=== PATIENT | male | born 1975 | race Caucasian/White ===

== ENCOUNTER → 2018-05-16 11:28 | Outpatient (CLI) | payer OTHER, SELFPAY ==
[2018-05-16 12:43] LABS: Alanine Aminotransferase 39 IU/L (21-72); Albumin 4.2 g/dL (3.5-5.0); Albumin Globulin Ratio 1.7 (1.0-2.8); Alkaline Phosphatase 47 U/L (38-126); Aspartate Aminotransferase 30 IU/L (17-59); BUN Creatinine Ratio 10.9 (6-22); Bilirubin Total 1.2 mg/dL (0.2-1.3); Blood Urea Nitrogen 12 mg/dL (9-20); Carbon Dioxide 24 mmol/L (22-32); Chloride 106 mmol/L (98-107); Cholesterol 188 mg/dL (140-199); Estimated Glomerular Filt Rate > 60.0 mL/min (>60); Globulin 2.5 g/dL (1.7-4.1); Glucose 94 mg/dL (70-100); HDL Cholesterol 39 mg/dL (40-60); HEMOLYSIS < 15 (0-50); LDL Cholesterol Calculated 114 mg/dL (<100); Potassium 4.5 mmol/L (3.4-5.1); Sodium 139 mmol/L (137-145); Total Protein 6.7 g/dL (6.3-8.2); Triglycerides 175 mg/dL (35-150)
[2018-05-16 17:17] LABS: Microalbumin Urine Random 1.6 mg/dL (0-1.6)
[2018-05-16 17:35] LABS: Creatinine Urine Random 465.1 mg/dL; Microalbumi Creatinin Ratio Ur 3.4 ug/mg CR (<30)
== END ==
PROVIDERS: PCP Physician Assistant; Visit Provider Physician Assistant
DX: I10 Essential (primary) hypertension (principal)
CPT/HCPCS: 36415; 80053; 80061; 82043; 82570

== ENCOUNTER 2018-10-25 22:42 | Emergency (ER) | payer OTHER, SELFPAY ==
--- NOTE | 2018-10-25 22:51 | DI.RAD.S_ITS ---
PROCEDURE: XR RIBS LT MIN 3V W CXR1V INDICATIONS: fall and landed on left ribs TECHNIQUE: 2 views of the left ribs were acquired, along with a single view chest. COMPARISON: None. FINDINGS: Surgical changes and devices: None. Bones and chest wall: No fractures or dislocations. No suspicious bony lesions. Overlying soft tissues appear unremarkable. Lungs and pleura: No pleural effusions or pneumothorax. No acute consolidation. Scattered subsegmental atelectasis and/or scarring Mediastinum: Mediastinal contours appear normal. Heart size is normal. IMPRESSION: No definite or displaced rib fracture identified. No pneumothorax No acute consolidation. Scattered subsegmental atelectasis and/or scarring Dictated by: Danny Moore M.D. on 10/26/2018 at 7:25 Approved by: Danny Moore M.D. on 10/26/2018 at 7:27
--- NOTE | 2018-10-25 22:51 | ED_ITS ---
HPI - Chest Pain General Chief Complaint: Chest Pain Stated Complaint: LT SIDED RIB PAIN Time Seen by Provider: 10/25/18 22:43 Source: patient Mode of arrival: ambulatory Limitations: no limitations History of Present Illness HPI narrative: 43-year-old male here for evaluation of left-sided chest pain. Approximately 2 hr ago he tripped felt his bathroom landed on his left side on the tub. Did not his head. No loss of consciousness. Is not on anticoagulation. Has pain back to the left side of his chest. No problems breathing. Related Data Home Medications Medication Instructions Recorded Confirmed ibuprofen 200 mg PO PRN PRN #0 08/12/17 08/22/18 naproxen sodium [Aleve] 220 mg PO PRN PRN #0 08/12/17 08/22/18 aspirin 81 mg PO QDAY #0 08/30/17 08/22/18 Previous Rx's Medication Instructions Recorded metoprolol tartrate 25 mg tablet 25 mg PO BID #180 tab 06/15/18 azithromycin 250 mg tablet See Label Instructions PO .COMPLEX 08/22/18 #6 tab lisinopril 10 mg tablet 10 mg PO DAILY #90 tab 09/25/18 Allergies Allergy/AdvReac Type Severity Reaction Status Date / Time amoxicillin [AMOXICILLIN] Allergy Intermediate Diffuse Verified 10/25/18 22:52 rash Review of Systems Constitutional Denies fever(s) Cardiovascular Denies chest pain, Denies palpitations and Denies dyspnea Respiratory Reports pain with cough and Denies dyspnea Comments: Pain posterior left chest Gastrointestinal Gastrointestinal: Denies abdominal pain Integumentary/Breasts Denies lesions and Denies rash Endocrine Denies palpitations Hematologic/Lymphatic Comments: Not on anticoagulation PFSH Medical History Chronic back pain (Chronic) Hypertension (Chronic) Sleep apnea (Chronic) Varicose veins of both lower extremities (Chronic) Bilateral inguinal hernia (Resolved) Stroke (Resolved) Surgical History Status post hernia repair (10/20/17) Family History Father History of sleep apnea Mother Varicose veins of both lower extremities Social History Smoking Status: Current every day smoker Tobacco: How many years used: 24 alcohol intake: current (every once in a while, like twice a week) substance use type: does not use Exam Initial Vital Signs Initial Vital Signs: Vital Signs Temperature 98.6 F 10/25/18 22:52 Pulse Rate 86 10/25/18 22:52 Respiratory Rate 15 10/25/18 22:52 Blood Pressure 130/86 10/25/18 22:52 Pulse Oximetry 100 10/25/18 22:52 Const General: cooperative, healthy appearing, comfortable, well developed and No well groomed Orientation: alert, awake and oriented x3 HENMT Head: normal to inspection and normocephalic Chest Chest: normal inspection of the chest Other: No tenderness to palpation anterior left right chest wall Resp Effort & Inspection: normal respiratory effort Auscultation: clear to auscultation bilaterally Cardio Rate: regular rate Rhythm: regular rhythm Back/Spine/Pelvis Other: Tenderness to palpation left-sided paraspinal over mid ribs. Improves as a move laterally Skin Lesions: no lesions Rashes: no rashes Neuro General: alert, awake and oriented x3 Extrem General: normal to inspection and capillary refill normal Psych Appearance: grossly normal and well kempt Course Orders Ordered: ED Orders 10/25/18 22:51 XR ribs LT min 3V w CXR1V Stat Vital Signs - 8 hr 10/25/18 22:52 Temperature 98.6 F Pulse Rate 86 Respiratory Rate 15 Blood Pressure 130/86 Pulse Oximetry 100 [facility] - Chest Pain Imaging Data X-ray ribs: Attestation: I personally reviewed and interpreted this imaging study as follows: My impression: No fractures, no dislocation, no pneumothorax [facility] Narrative Medical decision making narrative: Patient not in respiratory distress. He is not hypoxic. No bruising on the skin. No definitive fracture seen on the rib series x-ray. Had a discussion with the patient regarding his symptoms. He has ibuprofen that he takes at home. He was given return precautions. Will hold on further workup for now. Discharge Plan Departure Patient Disposition: Home Clinical Impression: Contusion of rib on left side Instructions: DI for Rib Contusion Activity Restrictions/Additional Instructions: Recommend that you continue to take the Aleve for any discomfort. Also recommend that you periodically take big deep breaths. Continue all of your other medications as directed. Call your primary care doctor for a follow-up. Return to the emergency department for any new or worsening symptoms Prescriptions: No Action metoprolol tartrate 25 mg tablet 25 mg PO BID Qty: 180 RF: 1 azithromycin 250 mg tablet See Label Instructions PO .COMPLEX Qty: 6 RF: 0 naproxen sodium [Aleve] 220 MG tablet 220 mg PO PRN PRNQty: 0 RF: 0 ibuprofen 200 MG tablet 200 mg PO PRN PRNQty: 0 RF: 0 aspirin 81 MG tablet,delayed release (DR/EC) 81 mg PO QDAY Qty: 0 RF: 0 lisinopril 10 mg tablet 10 mg PO DAILY Qty: 90 RF: 2
[2018-10-25 22:52] VITALS: BP 130/86; PULSE 86; RESP 15; TEMP 37; O2SAT 100; BMI 25.0
[2018-10-25 23:43] VITALS: BP 124/84; PULSE 80; O2SAT 95
== END 2018-10-25 23:43 | disposition home or self-care (01) ==
PROVIDERS: Emergency Provider Emergency Medicine; Family Provider Physician Assistant; PCP Physician Assistant
DX: S20.212A Contusion of left front wall of thorax, initial encounter (principal); W01.0XXA Fall on same level from slipping, tripping and stumbling without subsequent striking against object, initial encounter
CPT/HCPCS: 71101; 99282; 99283

== ENCOUNTER → 2019-04-20 10:37 | Outpatient (CLI) | payer OTHER, SELFPAY ==
[2019-04-20 11:11] LABS: Alanine Aminotransferase 23 IU/L (21-72); Albumin 4.3 g/dL (3.5-5.0); Albumin Globulin Ratio 1.7 (1.0-2.8); Alkaline Phosphatase 34 U/L (38-126); Aspartate Aminotransferase 26 IU/L (17-59); Blood Urea Nitrogen 7 mg/dL (9-20); Calcium 9.2 mg/dL (8.4-10.2); Carbon Dioxide 25 mmol/L (22-32); Chloride 105 mmol/L (98-107); Cholesterol 166 mg/dL (140-199); Estimated Glomerular Filt Rate > 60.0 mL/min (>60); Globulin 2.5 g/dL (1.7-4.1); Glucose 80 mg/dL (70-100); HDL Cholesterol 49 mg/dL (40-60); HEMOLYSIS < 15 (0-50); LDL Cholesterol Calculated 88 mg/dL (<100); Potassium 4.1 mmol/L (3.4-5.1); Sodium 138 mmol/L (137-145); Total Protein 6.8 g/dL (6.3-8.2); Triglycerides 145 mg/dL (35-150)
== END ==
PROVIDERS: PCP Physician Assistant; Visit Provider Physician Assistant
DX: I10 Essential (primary) hypertension (principal); E78.2 Mixed hyperlipidemia
CPT/HCPCS: 36415; 80053; 80061

== ENCOUNTER → 2019-07-13 13:01 | Outpatient (CLI) | payer OTHER, SELFPAY ==
--- NOTE | 2019-07-13 13:03 | DI.RAD.S_ITS ---
PROCEDURE: XR RIBS LT MIN 3V W CXR1V INDICATIONS: Left-sided rib pain TECHNIQUE: 2 views of the left ribs were acquired, along with a single view chest. COMPARISON: [facility], CR, XR RIBS LT MIN 3V W CXR1V, 10/25/2018, 22:59. FINDINGS: Surgical changes and devices: None. Bones and chest wall: No fractures or dislocations. No suspicious bony lesions. Overlying soft tissues appear unremarkable. Lungs and pleura: No pleural effusions or pneumothorax. Lungs appear clear. Mediastinum: Mediastinal contours appear normal. Heart size is normal. IMPRESSION: Chest without acute cardiopulmonary abnormalities. No evidence for acute/displaced rib fractures. Dictated by: Charles Hua M.D. on 07/13/2019 at 13:35 Approved by: Charles Hua M.D. on 07/13/2019 at 13:36
== END ==
PROVIDERS: PCP Physician Assistant; Visit Provider Physician Assistant
DX: R07.81 Pleurodynia (principal)
CPT/HCPCS: 71101

== ENCOUNTER 2019-07-21 03:38 | Emergency (ER) | payer OTHER, SELFPAY ==
[2019-07-21 03:40] VITALS: BP 143/85; PULSE 107; RESP 15; TEMP 36.8; O2SAT 100; BMI 24.1
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
--- NOTE | 2019-07-21 04:35 | PC.NURSE ---
PT L arm abrasion washed with soap and water per Dr instructions.
[2019-07-21 04:40] VITALS: BP 138/91; PULSE 92; RESP 16; O2SAT 98
== END 2019-07-21 04:40 | disposition home or self-care (01) ==
PROVIDERS: Emergency Provider Emergency Medicine; PCP Physician Assistant
DX: S10.91XA Abrasion of unspecified part of neck, initial encounter (principal); S50.812A Abrasion of left forearm, initial encounter; Y04.8XXA Assault by other bodily force, initial encounter
CPT/HCPCS: 70450; 99283

== ENCOUNTER → 2019-07-24 12:27 | Outpatient (CLI) | payer OTHER, SELFPAY ==
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
== END ==
PROVIDERS: PCP Physician Assistant; Visit Provider Hospitalist
DX: R07.81 Pleurodynia (principal); S22.42XA Multiple fractures of ribs, left side, initial encounter for closed fracture; Y04.0XXA Assault by unarmed brawl or fight, initial encounter
CPT/HCPCS: 71101

== ENCOUNTER → 2019-08-21 10:55 | Outpatient (CLI) | payer OTHER, SELFPAY ==
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
== END ==
PROVIDERS: PCP Physician Assistant; Visit Provider Physician Assistant
DX: M25.551 Pain in right hip (principal); S30.0XXA Contusion of lower back and pelvis, initial encounter; M79.18 Myalgia, other site; R20.0 Anesthesia of skin; S51.852A Open bite of left forearm, initial encounter; Y04.1XXA Assault by human bite, initial encounter; Y04.0XXA Assault by unarmed brawl or fight, initial encounter
CPT/HCPCS: 73080; 73502

== ENCOUNTER → 2019-11-12 11:42 | Outpatient (CLI) | payer OTHER, SELFPAY ==
[2019-11-12 12:58] LABS: Blood Urea Nitrogen 9 mg/dL (9-20); Calcium 9.4 mg/dL (8.4-10.2); Carbon Dioxide 25 mmol/L (22-32); Chloride 108 mmol/L (98-107); Estimated Glomerular Filt Rate > 60.0 mL/min (>60); Glucose 88 mg/dL (70-100); HEMOLYSIS 15 (0-50); Potassium 4.2 mmol/L (3.4-5.1); Sodium 142 mmol/L (137-145)
[2019-11-12 21:28] LABS: Creatinine Urine Random 77.9 mg/dL
[2019-11-12 21:29] LABS: Microalbumi Creatinin Ratio Ur 7.7 ug/mg CR (<30); Microalbumin Urine Random < 0.6 mg/dL (0-1.6)
== END ==
PROVIDERS: PCP Physician Assistant; Visit Provider Physician Assistant
DX: I10 Essential (primary) hypertension (principal)
CPT/HCPCS: 36415; 80048; 82043; 82570

== ENCOUNTER 2022-03-27 13:46 | Emergency (ER) | payer OTHER, SELFPAY ==
[2022-03-27 13:53] VITALS: BP 129/91; PULSE 86; RESP 18; TEMP 36.7; O2SAT 97; BMI 25.0
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
[2022-03-27 15:08] VITALS: BP 133/94; PULSE 78; RESP 19; O2SAT 100
== END 2022-03-27 15:11 | disposition home or self-care (01) ==
PROVIDERS: Emergency Provider Emergency Medicine; PCP Internal Medicine
DX: T63.441A Toxic effect of venom of bees, accidental (unintentional), initial encounter (principal)
CPT/HCPCS: 99281

== ENCOUNTER → 2022-08-26 07:31 | Outpatient (CLI) | payer OTHER, SELFPAY | PROVIDERS: PCP Internal Medicine; Visit Provider Nurse Practitioner Family | DX: L08.9 Local infection of the skin and subcutaneous tissue, unspecified (principal); T14.8XXA Other injury of unspecified body region, initial encounter | CPT/HCPCS: 87070; 87075; 87077; 87147; 87186; 87205 ==

== ENCOUNTER → 2023-03-28 09:22 | Outpatient (CLI) | payer OTHER, SELFPAY ==
[2023-03-28 10:36] LABS: Alanine Aminotransferase 28 IU/L (<50); Albumin 4.5 g/dL (3.5-5.0); Albumin Globulin Ratio 1.6 (1.0-2.8); Alkaline Phosphatase 57 U/L (38-126); Aspartate Aminotransferase 34 IU/L (17-59); BUN Creatinine Ratio 12.6 (6-22); Bilirubin Total 0.9 mg/dL (0.2-1.3); Blood Urea Nitrogen 12 mg/dL (9-20); Calcium 9.3 mg/dL (8.4-10.2); Carbon Dioxide 23 mmol/L (22-32); Chloride 106 mmol/L (98-107); Cholesterol 183 mg/dL (140-199); Estimated Glomerular Filt Rate > 60 mL/min (>60); Globulin 2.8 g/dL (1.7-4.1); Glucose 75 mg/dL (70-100); HDL Cholesterol 39 mg/dL (40-60); HEMOLYSIS < 15 (0-50); LDL Cholesterol Calculated 107 mg/dL (<100); Potassium 3.7 mmol/L (3.4-5.1); Sodium 140 mmol/L (137-145); Total Protein 7.3 g/dL (6.3-8.2); Triglycerides 184 mg/dL (35-150)
== END ==
PROVIDERS: PCP Internal Medicine; Referring Provider Internal Medicine; Visit Provider Internal Medicine
DX: I10 Essential (primary) hypertension (principal); Z13.6 Encounter for screening for cardiovascular disorders
CPT/HCPCS: 36415; 80053; 80061

== ENCOUNTER → 2023-07-21 07:46 | Outpatient (CLI) | payer OTHER, SELFPAY ==
--- NOTE | 2023-07-21 07:47 | DI.RAD.S_ITS ---
PROCEDURE: XR KNEE LT 3V INDICATIONS: left knee pain TECHNIQUE: 3 views of the knee were acquired. COMPARISON: None. FINDINGS: Bones: No fractures or dislocations. No suspicious bony lesions. Soft tissues: No joint effusion. No suspicious soft tissue calcifications. IMPRESSION: No acute osseous abnormality. If clinical symptoms persist or clinical suspicion for internal derangement is high, consider MRI is suggested for further evaluation. Dictated by: Piotr Upton M.D. on 07/21/2023 at 11:22 Approved by: Piotr Upton M.D. on 07/21/2023 at 11:25
== END ==
PROVIDERS: PCP Internal Medicine; Referring Provider Physician Assistant; Visit Provider Physician Assistant
DX: M25.562 Pain in left knee (principal)
CPT/HCPCS: 73562

== ENCOUNTER → 2023-08-04 19:31 | Outpatient (CLI) | payer OTHER, SELFPAY ==
--- NOTE | 2023-08-04 19:32 | DI.MRI.S_ITS ---
PROCEDURE: MR KNEE LT WO CON INDICATIONS: LEFT KNEE PAIN TECHNIQUE: Noncontrast sagittal PD fast spin echo and T2 fast spin echo with fat saturation, sagittal 3-D FLASH with fat saturation; coronal T1 spin echo and PD fast spin echo with fat saturation, and axial PD fast spin echo with fat saturation through the knee. COMPARISON: [facility], CR, XR KNEE LT 3V, 07/21/2023, 7:59. FINDINGS: Image quality: Excellent. Menisci: There is horizontal tear involving the posterior horn of the medial meniscus. medial and lateral menisci demonstrate normal morphology and internal signal. The meniscal root ligaments appear intact. Cruciate ligaments: The anterior and posterior cruciate ligaments appear intact. Medial structures: The medial collateral ligament appears intact. The semimembranosus tendon insertions and meniscocapsular junction appear intact. Visualized portions of the pes anserinus tendons appear normal. No abnormal bursal fluid. Lateral structures: The lateral collateral ligament, long and short heads of the biceps femoris tendon appear intact. The popliteus tendon appears normal. Iliotibial band appears normal. Anterior structures: The quadriceps and patellar tendons appear intact. Patellar alignment is normal. No femoral trochlear dysplasia or ventral trochlear prominence. There is edema in the superior lateral aspect of the infrapatellar fat pad. Bones and cartilage: No bone marrow contusions or fractures. The cartilage of the medial and lateral femorotibial compartments, as well as the patellofemoral compartment, appears normal in thickness. Joint space: There is physiologic knee joint fluid. There is a small Coley's cyst. Normal appearing synovial plicae are incidentally noted. IMPRESSION: 1. Horizontal tear of the posterior horn of the medial meniscus. 2. Edema in the superior lateral aspect of the infrapatellar fat pad consistent with infrapatellar Hoffa pad impingement syndrome. 3. Small Coley's cyst. Dictated by: Piotr Upton M.D. on 08/05/2023 at 11:35 Approved by: Piotr Upton M.D. on 08/05/2023 at 12:05
== END ==
PROVIDERS: PCP Internal Medicine; Referring Provider Physician Assistant; Visit Provider Physician Assistant
DX: S83.242A Other tear of medial meniscus, current injury, left knee, initial encounter (principal); R60.0 Localized edema; M71.21 Synovial cyst of popliteal space [Baker], right knee
CPT/HCPCS: 73721

== ENCOUNTER → 2024-03-13 11:17 | Outpatient (CLI) | payer OTHER, SELFPAY ==
[2024-03-13 13:30] LABS: Alanine Aminotransferase 23 IU/L (<50); Albumin 4.6 g/dL (3.5-5.0); Albumin Globulin Ratio 1.9 (1.0-2.8); Alkaline Phosphatase 55 U/L (38-126); Aspartate Aminotransferase 31 IU/L (17-59); BUN Creatinine Ratio 9.8 (6-22); Bilirubin Total 0.7 mg/dL (0.2-1.3); Blood Urea Nitrogen 9 mg/dL (9-20); Calcium 9.9 mg/dL (8.4-10.2); Carbon Dioxide 23 mmol/L (22-32); Chloride 110 mmol/L (98-107); Estimated Glomerular Filt Rate > 60 mL/min (>60); Globulin 2.4 g/dL (1.7-4.1); Glucose 91 mg/dL (70-100); HEMOLYSIS < 15 (0-50); Potassium 4.4 mmol/L (3.4-5.1); Sodium 142 mmol/L (137-145)
== END ==
PROVIDERS: PCP Internal Medicine; Referring Provider Internal Medicine; Visit Provider Internal Medicine
DX: I10 Essential (primary) hypertension (principal)
CPT/HCPCS: 36415; 80053

== ENCOUNTER → 2024-03-26 09:58 | Outpatient (CLI) | payer OTHER, SELFPAY ==
[2024-03-27 09:41] LABS: Fecal Immunochemical Test Positive (Negative)
== END ==
PROVIDERS: PCP Internal Medicine; Referring Provider Internal Medicine; Visit Provider Internal Medicine
DX: Z12.11 Encounter for screening for malignant neoplasm of colon (principal)
CPT/HCPCS: 82274